=== PATIENT | male | born 1990 | race African-American/Black ===

== ENCOUNTER 2025-02-22 21:27 | Inpatient (IN) | payer MEDICAID ==
[~2025-02-22] VITALS: Ht 169.4 cm; Wt 73.5 kg
[~2025-02-22 21:27] MED LIST: BACL-141 GT; FAMO20TA8 GT; LEVE100023 GT; POLY119P2 MT
[2025-02-22 21:32] VITALS: O2SAT 99
[2025-02-22 22:56] LABS: BASOPHILS % 0.2 % (0.0-2.0); EOSINOPHILS % 3.0 % (0.0-5.0); HEMATOCRIT. 37.6 % (42.0-52.0); HEMOGLOBIN. 12.2 g/dL (14.0-18.0); LYMPHOCYTES % 25.2 % (20.0-50.0); MEAN PLATELET VOLUME 8.8 fl (7.4-10.4); MONOCYTES % 7.8 % (2.0-8.0); NEUTROPHILS % 63.8 % (40.0-76.0); PLATELET 204 x1000/uL (130-400); RED BLOOD CELL COUNT 4.72 mill/uL (4.7-6.1); RED CELL DISTRIBUTION WIDTH 17.1 % (11.6-14.6)
[2025-02-23] VITALS (7 sets, daily range): BP systolic 93–106; BP diastolic 55–70; PULSE 62–82; RESP 17–20; TEMP 36.0288–37; O2SAT 97–100
[2025-02-23] MEDS ORDERED: NALOXONE HCL 0.4MG/ML VIAL IV PRN (00:30)
[2025-02-23] MEDS ORDERED: MORPHINE SULFATE 2 MG/ML INJ (NOT FOR IM USE) IV PRN (00:30)
[2025-02-23] MEDS: DEXT 5%/0.45% NACL KCL 20MEQ/L 1,000 ML IV SCH (01:43)
[2025-02-23] MEDS ORDERED: ONDANSETRON HCL 4MG/2ML INJ IV PRN (06:45)
[2025-02-23] MEDS ORDERED: ACETAMINOPHEN 325MG TABLET PO PRN (06:45)
[2025-02-23] MEDS: SODIUM CHLORIDE 0.9% 1,000 ML IV SCH (07:06)
[2025-02-23] MEDS ORDERED: FAMOTIDINE 20MG/2ML VIAL IV SCH (09:00)
[2025-02-23] MEDS ORDERED: LEVETIRACETAM 1,000MG in NACL 100ML PREMIX IV SCH (09:00)
[2025-02-23] MEDS: PANTOPRAZOLE SODIUM 40 MG/VIAL IV SCH (09:36)
[2025-02-23] MEDS: LEVETIRACETAM 1000MG PREMIX 100 ML IV SCH (09:36)
[2025-02-24] VITALS: BP 103/79; PULSE 80; RESP 18; TEMP 36.4; O2SAT 96
[2025-02-24 04:00] VITALS: BP 105/67; PULSE 62; RESP 18; TEMP 36.5; O2SAT 96
[2025-02-24 08:00] VITALS: BP 108/66; PULSE 61; RESP 17; TEMP 36.5; O2SAT 100
[2025-02-24 12:00] VITALS: BP 113/72; PULSE 46; RESP 17; TEMP 36.6; O2SAT 100
[2025-02-24 16:00] VITALS: BP 110/74; PULSE 93; RESP 16; TEMP 36.7; O2SAT 100
[2025-02-24] MEDS ORDERED: DIATR MEGLU/DIATRIZOATE SOLN 30ML PO PRN (17:30)
[2025-02-24] MEDS ORDERED: DIATR MEGLU/DIATRIZOATE SOLN 30ML ONE (17:37)
[2025-02-24 20:00] VITALS: BP 117/71; PULSE 47; RESP 16; TEMP 36.6; O2SAT 100
[2025-02-25] VITALS: BP 129/73; PULSE 64; RESP 19; TEMP 36.9; O2SAT 100
[2025-02-25 04:00] VITALS: BP 128/78; PULSE 64; RESP 18; TEMP 36.6; O2SAT 97
[2025-02-25 07:00] LABS: BASOPHILS % 0.5 % (0.0-2.0); EOSINOPHILS % 0.2 % (0.0-5.0); HEMATOCRIT. 40.7 % (42.0-52.0); HEMOGLOBIN. 12.9 g/dL (14.0-18.0); LYMPHOCYTES % 19.9 % (20.0-50.0); MEAN PLATELET VOLUME 8.7 fl (7.4-10.4); MONOCYTES % 5.5 % (2.0-8.0); NEUTROPHILS % 73.9 % (40.0-76.0); PLATELET 238 x1000/uL (130-400); RED BLOOD CELL COUNT 5.07 mill/uL (4.7-6.1); RED CELL DISTRIBUTION WIDTH 16.7 % (11.6-14.6)
[2025-02-25 07:30] LABS: CREATININE 0.7 mg/dL (0.6-1.3); UREA NITROGEN BLOOD 7 mg/dL (9-23)
[2025-02-25 08:20] VITALS: BP 116/85; PULSE 64; RESP 20; TEMP 36.5; O2SAT 97
[2025-02-25 12:25] VITALS: BP 129/85; PULSE 52; RESP 20; TEMP 36.6; O2SAT 99
[2025-02-25 16:00] VITALS: BP 104/66; PULSE 57; RESP 18; TEMP 36.4; O2SAT 98
[2025-02-25 16:27] VITALS: BP 104/66; PULSE 75; RESP 18; TEMP 97.5
== END 2025-02-25 17:32 | disposition home or self-care (01) | DRG 252 ==
LOC: ER 21:27 → 8WST 22:37 → EDBEDREQTM 22:39 → EDBEDREQ 22:39 → ENRESERV 22:54
PROVIDERS: ADMIT Internal Medicine; ATTEND Internal Medicine
DX: K94.23 Gastrostomy malfunction (principal); G82.50 Quadriplegia, unspecified; Z74.01 Bed confinement status; Y83.9 Surgical procedure, unspecified as the cause of abnormal reaction of the patient, or of later complication, without mention of misadventure at the time of the procedure; Y92.89 Other specified places as the place of occurrence of the external cause
CPT/HCPCS: 36415; 74018; 74176; 80048; 85025; 93970; 99285; J1953; J2470; J7030; Q9963